=== PATIENT | female | born 1955 | race Caucasian/White ===

== ENCOUNTER 2025-07-06 08:26 | Inpatient (IN) ==
[2025-07-06] MEDS: OPTIRAY 320 125ml IV ONE (08:41)
--- NOTE | 2025-07-06 08:54 | CT Scan Report ---
CT SCAN OF THE BRAIN WITHOUT IV CONTRAST CLINICAL HISTORY: Neurological deficit. Stroke like symptoms COMPARISON STUDY: No prior TECHNIQUE: Unenhanced axial CT scan of the brain is performed from the vertex to the skull base. Imag es are reviewed in the axial, sagittal, coronal planes. A dose lowering technique was utilized adheri ng to the principles of ALARA. CT DOSE: 630.51 mGy.cm FINDINGS: Brain parenchyma: There is age-related involutional change noting moderate patchy subcortical and per iventricular microangiopathic disease. There is no hemorrhage, mass effect, or evidence of acute terr itorial ischemia by CT criteria. Bautista-white matter differentiation is preserved. No extra-axial fluid collection is seen. Ventricles, sulci, cisterns: Prominent secondary to involutional change. Intracranial vasculature: There is mild atherosclerotic calcification of the cavernous carotid arteri es. Calvarium: Unremarkable. Advanced arthritic change is seen in the left temporomandibular joint. Sinuses and mastoids: There is sora-cd-epaaythx mucosal thickening within the maxillary antra. Mild m ucosal thickening is noted within the frontal and ethmoid sinuses. There is a small left mastoid effu joyce. The right mastoid air cells are well pneumatized. Orbits: The bony orbits are grossly intact. IMPRESSION: There is no hemorrhage, mass effect, or evidence of acute territorial ischemia by CT rafael jha. ACT 112: Negative or not required by law. Electronically signed by: Jeff Palmer M.D. 07/06/2025 8:52 AM
[2025-07-06] MEDS: SODIUM CHLORIDE 0.9% 1,000 ML IV SCH (08:56)
--- NOTE | 2025-07-06 08:58 | CT Scan Report ---
CT ANGIOGRAPHY OF THE NECK WITH CONTRAST CLINICAL HISTORY: neuro deficit, acute stroke suspected COMPARISON STUDY: No previous studies for comparison. Technique: CT angiography of the carotid and vertebral arteries was obtained using Optiray and 3D rec onstruction on an independent workstation. NASCET criteria was utilized. Automated exposure control was utilized for the study. A dose lowering technique was utilized adhering to the principles of ALA RA. Findings: Visualized portions of the lung apices are unremarkable. There is no cervical lymphadenopat hy. There is no cervical spine fracture. There is mild calcified atherosclerotic plaque within the pr oximal left internal carotid artery without stenosis. The bilateral common carotid, cervical internal carotid and vertebral arteries are patent. There is no aneurysm or dissection within the major vascu lature of the neck. IMPRESSION: No stenosis or dissection within the bilateral common carotid, cervical internal carotid or vertebral arteries. ACT 112: Negative or not required by law. Electronically signed by: Ghanshyam Aburto M.D. 07/06/2025 8:57 AM
[2025-07-06 09:12] LABS: Hematocrit (blood only) 31.0 % (37.0-47.0); Hemoglobin 10.3 g/dl (12.0-16.0); Immature Granulocytes # (auto) 0.02 K/uL (0.01-0.20); Immature Granulocytes % (auto) 0.5 %; Mean Corpuscular Hemoglobin 30.5 pg (25.0-34.0); Mean Corpuscular Volume 91.7 fL (80.0-100.0); Platelet Count 190 K/uL (130-400); RDW Standard Deviation 46.3 fL (36.4-46.3); Red Blood Count 3.38 M/uL (4.20-5.40); White Blood Count 3.68 K/ul (4.8-10.8)
--- NOTE | 2025-07-06 09:22 | CT Scan Report ---
CT angio head w con CLINICAL HISTORY: 69 years-old Female with neuro deficit, acute stroke suspected. Acute stroke lik e symptoms COMPARISON STUDY: Head CT same day TECHNIQUE: Following the IV administration of 112 cc of Optiray, CT angiogram of the brain was perfor med from the skull base to the vertex. Images are reviewed in the axial, sagittal, and coronal planes . 3-D MIPS images are created and assessed. IV contrast was administered without complication. All me asurements were obtained according to NASCET criteria. A dose lowering technique was utilized adherin g to the principles of ALARA. CT DOSE: 457.52 mGy.cm FINDINGS: CT BRAIN: Dictated separately. CT ANGIOGRAM OF THE BRAIN: The imaged bilateral internal carotid arteries are patent. The bilateral anterior and middle cerebral arteries are also patent. The distal vertebral arteries are patent. There is a short segment of high -grade stenosis within the P1 segment right posterior cerebral artery on image 104 series 3. Posterio r cerebral arteries are otherwise widely patent. There is no aneurysm, or proximal branch occlusion i dentified. Dural sinuses appear patent. IMPRESSION: 1. Short segment focus of high-grade stenosis within the right posterior cerebral artery. 2. Otherwise unremarkable CTA of the head. ACT 112: Negative or not required by law. The above report was generated using voice recognition software. It may contain grammatical, syntax o r spelling errors. Electronically signed by: Dar Blackwell M.D. 07/06/2025 9:20 AM
[2025-07-06 09:29] LABS: Alanine Aminotransferase 11.0 U/L (7-52); Albumin Globulin Ratio 1.6 (0.9-2); Alkaline Phosphatase 64.0 U/L (34-104); Anion Gap 2.0 (3-11); Bilirubin,Total 0.5 mg/dl (0.2-1.0); Blood Urea Nitrogen 16.0 mg/dl (6-23); Calcium 8.6 mg/dl (8.6-10.3); Carbon Dioxide 30.0 mmol/L (21-32); Chloride 103.0 mmol/L (98-107); Creatinine Clr Calc Pharmacy 91.3 ml/min; Globulin 2.3 gm/dl (2.5-4.0); Glucose 129.0 mg/dl (70-99(Fasting)); Magnesium 1.8 mg/dl (1.7-2.4); Potassium 4.3 mmol/L (3.5-5.1); Sodium 135.0 mmol/L (136-145); Total Protein 6.0 gm/dl (6.0-8.3)
[2025-07-06] MEDS: TICAGRELOR 90 MG TAB PO ONE (09:29)
[2025-07-06] MEDS: ASPIRIN CHEW 324 MG PO STA (09:29)
--- NOTE | 2025-07-06 09:33 | XRay Report ---
XR chest 1V portable HISTORY: 69 years-old Female neuro deficit, acute stroke suspected COMPARISON: CTA neck of same day TECHNIQUE: AP view of the chest FINDINGS: Cardiomediastinal and hilar silhouettes are within normal limits. There is no pneumothorax, pleural e ffusion, airspace consolidation or pulmonary edema. Spondylitic spurring of the spine. IMPRESSION: No acute process. ACT 112: Negative or not required by law. The above report was generated using voice recognition software. It may contain grammatical, syntax o r spelling errors. Electronically signed by: Dar Blackwell M.D. 07/06/2025 9:32 AM
--- NOTE | 2025-07-06 09:41 | Emergency Department Note ---
Impression & Plan Stroke-like symptoms ED Provider Note NAME: ROSALIA MATA AGE: 69 SEX: Female INFORMANT: Patient and ED PROVIDER(S): Bhaskar Friedman MD CHIEF COMPLAINT: Strokelike symptoms PLAN: Disposition: Admitted Outpatient prescription management: none Referral: None MEDICAL DECISION MAKING: Patient presented because of strokelike symptoms. She was taken emergently to CT imaging and was made a stroke alert. Patient was evaluated immediately upon arrival back to the examination room. She had findings concerning for stroke given the left facial droop, visual field cuts and some diplopia expressed with extraocular muscle testing. Unfortunately patient has a last known well time almost 12 hours ago. Emergent consultation was placed with [facility]. Discussed the case with Dr. Zaragoza. She did evaluate the patient via the telestroke cart. CT imaging of the head was unremarkable. CT angiography of the neck was unremarkable. There was a area of stenosis in the right posterior cerebral artery. Dr. Zaragoza recommended loading the patient with Brilinta 180 mg and then having her on 90 mg twice daily. She also recommended 325 mg of aspirin. Thrombolysis was not recommended given the patient's last known well time. Consultation was made with Dr. De La O of the [facility] hospitalist service. Case discussed and diagnostics were reviewed. Patient was evaluated in the ER and admitted for further management. Care/management discussed with: manager print, telestroke, hospitalist Level of care consideration(s): After review of the information above and other included data, I feel the patient requires escalation of care to admission Triage Nursing notes: reviewed and agree them. Vital Signs: reviewed and remarkable for mild hypertension Additional History obtained from: Patient's Chronic Medical/Social Conditions affecting care: History of tachycardia Prior/ Outside/ External records reviewed: None available Differential Diagnosis: CVA, TIA,Infection, dehydration, metabolic abnormality, hypo/hyperglycemia, electrolyte disturbance, anemia, hypoxia, cardiac sources, intracerebral event, toxicologic, neurologic, as well as other pathologies. Diagnostics, independently interpreted by me: ECG: Twelve-lead ECG reveals a sinus bradycardia [address] and T wave abnormality. No ST elevation. No prior for comparison. Cardiac Monitoring: Cardiac monitoring ordered by me: The patient was placed on continuous cardiac monitoring and observed. It revealed a normal sinus rhythm at 61 beats per minute without ectopy or evidence of dysrhythmia. Medical decision rules: none Imaging studies: Head CT: A noncontrast CT scan of the head was performed and was negative for tumor, fracture, intracranial hemorrhage, or other acute pathology. Chest x-ray. Findings: A chest x-ray was performed and revealed no pneumothorax, effusion, infiltrate, pulmonary edema, free air under the diaphragm, or wide mediastinum. Impression: No acute disease. HPI: 69 year old Female arrives for evaluation of strokelike symptoms. This started today with waking at 7 AM. Patient notes peripheral vision loss on the left side. Yesterday the patient had about a 30-minute episode of difficulty with word finding and slurred speech. confirmed. also noted the patient had left facial droop this morning as well. That was new. No history of stroke or TIA. Patient is not on anticoagulation and does not take aspirin. Patient does have a history of SVT. She notes having an episode of tachycardia with a heart rate up to 144 2 days ago and she did take a dose of her as needed metoprolol. That lasted about 6 hours and then resolved. The patient also notes the following associated symptoms, none. The patient has taken no medication today for relieving factors. Current pain is rated as 0/10. Pt denies LOC, headache, fevers, chills, diaphoresis, neck pain, chest pain, breathing difficulties, nausea, vomiting, abdominal pain, back pain, melena, hematochezia, urinary symptoms, numbness, balance problems, extremity weakness, lymphadenopathy, rash, or other complaints.. PAST MEDICAL HISTORY: See Below, SVT PAST SURGICAL HISTORY: See Below, SOCIAL HISTORY: See Below, HOME MEDICATIONS: See Below ALLERGIES: See Below VITALS: See Below PHYSICAL EXAMINATION: GENERAL: Awake, alert, well-appearing, in no distress HENT: Normocephalic, atraumatic. Oropharynx unremarkable. EYES: Normal conjunctiva. Sclera non-icteric. PERRLA. EOMI. Left superior and inferior visual field cuts in both left and right eye with independent testing. Patient does experience some diplopia but no obvious visible findings on extraocular muscle testing. NECK: Inspection normal. Non-tender. Supple. No nuchal rigidity. FROM. No masses. RESPIRATORY: Clear to auscultation. No wheezes. No rales. Normal respiratory effort. CARDIAC: Normal rate. Normal rhythm. No murmurs. No rubs. Extremities warm and well perfused. Pulses equal. No JVD. GI: Soft, non-distended. No tenderness to palpation. No rebound or guarding. No masses. RECTAL: Deferred. MUSCULOSKELETAL: Atraumatic. Chest examination reveals no tenderness. The back is symmetrical on inspection without obvious abnormality. There is no CVA tenderness to palpation. No joint edema. LOWER EXTREMITIES: Calves are equal size bilaterally and non-tender. No edema. No discoloration. NEURO: Normal sensorium. Left facial droop present. Cranial nerves II through XII intact otherwise. Speech normal. No drift. Normal rapid alternating movements. Normal [id number]. SKIN: No rash or jaundice noted. 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 Beliefs That Will Affect Care: None Current Living Situation: Spouse Other Information That Helps Us Care for You: No Feels Safe at Home: Yes Safety Concerns: Feels Safe At This Time Assistive Devices: None Allergies Allergies Allergy/AdvReac Type Severity Reaction Status Date / Time LUDY Inhibitors Allergy listed as Unverified 07/06/25 09:38 allergy with pharmacy Iodinated Contrast Media Allergy listed as Unverified 07/06/25 09:38 allergy with pharmacy metronidazole Allergy listed as Unverified 07/06/25 09:38 allergy with pharmacy opium poppy Allergy See Unverified 07/06/25 09:38 comment box Thiazides Allergy listed as Unverified 07/06/25 09:38 allergy with pharmacy Home Meds Home Medications Medication Instructions Recorded Confirmed amlodipine 10 mg tablet 5 - 10 mg PO UD 07/06/25 07/06/25 diltiazem HCl 120 mg 120 mg PO DAILY 07/06/25 07/06/25 capsule,extended release 24 hr furosemide 20 mg tablet 20 mg PO DAILY 07/06/25 07/06/25 metoprolol succinate 25 mg 0 mg PO DAILY 07/06/25 07/06/25 tablet,extended release 24 hr pregabalin 75 mg capsule 75 mg PO BID 07/06/25 07/06/25 telmisartan 40 mg tablet 20 - 40 mg PO UD 07/06/25 07/06/25 zolpidem 5 mg tablet 5 mg PO HS PRN Sleep 07/06/25 07/06/25 Results & Data (ED) Vital Signs Vital Signs - 24 hr 07/06/25 08:30 07/06/25 08:52 07/06/25 08:54 Temperature 36.5 C Temperature Source Temporal Artery Scan Pulse Rate 58 L 61 Pulse Rate [Apical] Pulse Rate from SpO2 Sensor Respiratory Rate 18 Respiratory Effort / Characteristics Non-Labored Spontaneous Respiratory Depth Normal Respiratory Pattern Regular Blood Pressure 188/100 H 180/96 H Blood Pressure [Right Arm] Blood Pressure Mean 129 118 Blood Pressure Mean [Right Arm] Pulse Oximetry 99 Oxygen Delivery Method Room Air Oxygen Flow Rate Sepsis Recent Fever Within 48 Hours No Sepsis New/Unexplained Change in Mental Status N/A Sepsis Action Taken by Nursing No Action Required 07/06/25 09:00 07/06/25 09:30 07/06/25 10:06 Temperature Temperature Source Pulse Rate 54 L 61 51 L Pulse Rate [Apical] Pulse Rate from SpO2 Sensor 55 L 61 51 L Respiratory Rate 17 14 16 Respiratory Effort / Characteristics Respiratory Depth Respiratory Pattern Blood Pressure 185/88 H 170/83 H 157/80 H Blood Pressure [Right Arm] Blood Pressure Mean 120 112 105 Blood Pressure Mean [Right Arm] Pulse Oximetry 96 97 97 Oxygen Delivery Method Room Air Room Air Room Air Oxygen Flow Rate Sepsis Recent Fever Within 48 Hours Sepsis New/Unexplained Change in Mental Status Sepsis Action Taken by Nursing 07/06/25 11:12 Temperature Temperature Source Pulse Rate Pulse Rate [Apical] 54 L Pulse Rate from SpO2 Sensor Respiratory Rate 19 Respiratory Effort / Characteristics Non-Labored Spontaneous Respiratory Depth Normal Respiratory Pattern Regular Blood Pressure Blood Pressure [Right Arm] 164/85 H Blood Pressure Mean Blood Pressure Mean [Right Arm] 111 Pulse Oximetry 99 Oxygen Delivery Method Nasal Cannula Oxygen Flow Rate 2 Sepsis Recent Fever Within 48 Hours Sepsis New/Unexplained Change in Mental Status Sepsis Action Taken by Nursing Laboratory Data 07/06/25 08:35 07/06/25 08:35 Lab Results 07/06/25 Range/Units 08:35 WBC 3.68 L (4.8-10.8) K/ul RBC 3.38 L (4.20-5.40) M/uL Hgb 10.3 L (12.0-16.0) g/dl Hct 31.0 L (37.0-47.0) % MCV 91.7 (80.0-100.0) fL MCH 30.5 (25.0-34.0) pg MCHC 33.2 (32.0-36.0) g/dL RDW Std Deviation 46.3 (36.4-46.3) fL RDW Coeff of Farhad 13.8 (11.5-14.5) % Plt Count 190 (130-400) K/uL MPV 9.8 (9.4-12.4) fL Immature Gran % (Auto) 0.5 % Neut % (Auto) 45.1 % Lymph % (Auto) 43.8 % [place] % (Auto) 8.7 % Eos % (Auto) 1.4 % Baso % (Auto) 0.5 % Neut # (Auto) 1.66 (1.40-6.50) K/uL Lymph # (Auto) 1.61 (1.20-3.40) K/uL [place] # (Auto) 0.32 (0.11-0.59) K/uL Eos # (Auto) 0.05 (0.00-0.50) K/uL Baso # (Auto) 0.02 (0.00-0.20) K/uL Immature Gran # (Auto) 0.02 (0.01-0.20) K/uL PT 11.4 (9.0-12.0) Seconds INR 1.1 (0.9-1.1) APTT 30 (21-31) Seconds PTT Ratio 1.1 Sodium 135 L (136-145) mmol/L Potassium 4.3 (3.5-5.1) mmol/L Chloride 103 (98-107) mmol/L Carbon Dioxide 30 (21-32) mmol/L Anion Gap 2 L (3-11) BUN 16 (6-23) mg/dl Creatinine 0.62 (0.6-1.2) mg/dl Est Cr Clr Drug Dosing 91.3 ml/min eGFR 95.74 BUN/Creatinine Ratio 25.8 H (10-20) Glucose 129 H (70-99(Fasting)) mg/dl Calcium 8.6 (8.6-10.3) mg/dl Magnesium 1.8 (1.7-2.4) mg/dl Total Bilirubin 0.5 (0.2-1.0) mg/dl AST 15 (13-39) U/L ALT 11 (7-52) U/L Alkaline Phosphatase 64 (34-104) U/L Troponin I High Sens 9.6 (0-14) pg/ml Total Protein 6.0 (6.0-8.3) gm/dl Albumin 3.7 (3.4-5.0) gm/dl Globulin 2.3 L (2.5-4.0) gm/dl Albumin/Globulin Ratio 1.6 (0.9-2) Blood Type O Positive Antibody Screen NEGATIVE Administered Medications Sodium Chloride (Nss) 1,000 mls @ 50 mls/hr IV .Q20H [facility] Stop: 07/09/25 08:44 Last Admin: 07/06/25 08:56 Dose: 50 mls/hr Documented By: [facility] Discontinued Medications Aspirin (Aspirin Chew 324 Mg) 324 mg PO NOW STA Stop: 07/06/25 09:24 Last Admin: 07/06/25 09:29 Dose: 324 mg Documented By: [facility] Ioversol (Optiray 320 125ml) 112 ml IV ONCE ONE Stop: 07/06/25 08:42 Last Admin: 07/06/25 08:41 Dose: 112 ml Documented By: KRISTOFER Ticagrelor (Ticagrelor 90 Mg Tab) 180 mg PO ONE ONE Stop: 07/06/25 09:24 Last Admin: 07/06/25 09:29 Dose: 180 mg Documented By: [facility] Imaging Data Radiologist's Impression: Head CT 07/06/25 08:33 CT SCAN OF THE BRAIN WITHOUT IV CONTRAST CLINICAL HISTORY: Neurological deficit. Stroke like symptoms COMPARISON STUDY: No prior TECHNIQUE: Unenhanced axial CT scan of the brain is performed from the vertex to the skull base. Images are reviewed in the axial, sagittal, coronal planes. A dose lowering technique was utilized adhering to the principles of ALARA. CT DOSE: 630.51 mGy.cm FINDINGS: Brain parenchyma: There is age-related involutional change noting moderate patchy subcortical and periventricular microangiopathic disease. There is no hemorrhage, mass effect, or evidence of acute territorial ischemia by CT criteria. Bautista-white matter differentiation is preserved. No extra-axial fluid collection is seen. Ventricles, sulci, cisterns: Prominent secondary to involutional change. Intracranial vasculature: There is mild atherosclerotic calcification of the cavernous carotid arteries. Calvarium: Unremarkable. Advanced arthritic change is seen in the left temporomandibular joint. Sinuses and mastoids: There is [id number] mucosal thickening within the maxillary antra. Mild mucosal thickening is noted within the frontal and ethmoid sinuses. There is a small left mastoid effusion. The right mastoid air cells are well pneumatized. Orbits: The bony orbits are grossly intact. IMPRESSION: There is no hemorrhage, mass effect, or evidence of acute territorial ischemia by CT criteria. ACT 112: Negative or not required by law. Electronically signed by: Jeff Palmer M.D. 07/06/2025 8:52 AM Chest X-Ray 07/06/25 08:35 XR chest 1V portable HISTORY: 69 years-old Female neuro deficit, acute stroke suspected COMPARISON: CTA neck of same day TECHNIQUE: AP view of the chest FINDINGS: Cardiomediastinal and hilar silhouettes are within normal limits. There is no pneumothorax, pleural effusion, airspace consolidation or pulmonary edema. Spondylitic spurring of the spine. IMPRESSION: No acute process. ACT 112: Negative or not required by law. The above report was generated using voice recognition software. It may contain grammatical, syntax or spelling errors. Electronically signed by: Dar Blackwell M.D. 07/06/2025 9:32 AM Head CTA 07/06/25 08:35 CT angio head w con CLINICAL HISTORY: 69 years-old Female with neuro deficit, acute stroke suspected. Acute stroke like symptoms COMPARISON STUDY: Head CT same day TECHNIQUE: Following the IV administration of 112 cc of Optiray, CT angiogram of the brain was performed from the skull base to the vertex. Images are reviewed in the axial, sagittal, and coronal planes. 3-D MIPS images are created and assessed. IV contrast was administered without complication. All measurements were obtained according to NASCET criteria. A dose lowering technique was utilized adhering to the principles of ALARA. CT DOSE: 457.52 mGy.cm FINDINGS: CT BRAIN: Dictated separately. CT ANGIOGRAM OF THE BRAIN: The imaged bilateral internal carotid arteries are patent. The bilateral anterior and middle cerebral arteries are also patent. The distal vertebral arteries are patent. There is a short segment of high-grade stenosis within the P1 segment right posterior cerebral artery on image 104 series 3. Posterior cerebral arteries are otherwise widely patent. There is no aneurysm, or proximal branch occlusion identified. Dural sinuses appear patent. IMPRESSION: 1. Short segment focus of high-grade stenosis within the right posterior cerebral artery. 2. Otherwise unremarkable CTA of the head. ACT 112: Negative or not required by law. The above report was generated using voice recognition software. It may contain grammatical, syntax or spelling errors. Electronically signed by: Dar Blackwell M.D. 07/06/2025 9:20 AM Neck CTA 07/06/25 08:35 CT ANGIOGRAPHY OF THE NECK WITH CONTRAST CLINICAL HISTORY: neuro deficit, acute stroke suspected COMPARISON STUDY: No previous studies for comparison. Technique: CT angiography of the carotid and vertebral arteries was obtained using Optiray and 3D reconstruction on an independent workstation. NASCET criteria was utilized. Automated exposure control was utilized for the study. A dose lowering technique was utilized adhering to the principles of ALARA. Findings: Visualized portions of the lung apices are unremarkable. There is no cervical lymphadenopathy. There is no cervical spine fracture. There is mild calcified atherosclerotic plaque within the proximal left internal carotid artery without stenosis. The bilateral common carotid, cervical internal carotid and vertebral arteries are patent. There is no aneurysm or dissection within the major vasculature of the neck. IMPRESSION: No stenosis or dissection within the bilateral common carotid, cervical internal carotid or vertebral arteries. ACT 112: Negative or not required by law. Electronically signed by: Ghanshyam Aburto M.D. 07/06/2025 8:57 AM Brain MRI 07/06/25 10:56 MRI OF THE BRAIN WITHOUT IV CONTRAST CLINICAL HISTORY: Strokelike symptoms. Left-sided visual changes. COMPARISON STUDY: CT of the brain dated 07/06/2025. TECHNIQUE: MRI of the brain was performed utilizing various T1 and T2-weighted sequences in the axial, sagittal, and coronal planes. IV contrast was not administered for this examination. FINDINGS: Brain parenchyma: There is age-related involutional change noting moderate subcortical and periventricular microangiopathic disease. There is a large focus of restricted diffusion in the right occipital lobe consistent with an acute to subacute infarct. There is an additional small focus of restricted diffusion in the left parietal cortex seen on image #20. There is no hemorrhage or midline shift. No extra-axial fluid collection is seen. The cerebellar tonsils are normal in configuration. Ventricles, sulci, and cisterns: Prominent secondary to involutional change. Pituitary and sella: Unremarkable. Intracranial vasculature: Normal flow voids are maintained at the skull base. Orbits: The bony orbits are grossly intact. Orbital contents are normal in appearance. Sinuses and mastoids: There is [id number]-[id number] mucosal thickening within the maxillary sinuses. Mild mucosal thickening is also seen within the ethmoid sinuses. There is trace left mastoid effusion. The right mastoid air cells are clear. Calvarium: Unremarkable. Cervical cord: Partially visualized cervical spinal cord is normal in morphology and signal intensity. IMPRESSION: 1. There is a large acute subacute right WINDOWS SOFTWARE DEVELOPER territory infarct. 2. There is also a small focus of acute to subacute ischemia within the left parietal cortex. Findings across different vascular territories favor an embolic phenomenon. 3. There is no hemorrhage or mass effect. ACT 112: Negative or not required by law. Electronically signed by: Jeff Palmer M.D. 07/06/2025 1:23 PM Discharge Plan Visit Data Chief Complaint: Stroke/CVA Symptoms Stated Complaint: POSSIBLE STROKE, LOSS OF VISION, SPEECH SLURRING ED Provider: Bhaskar Friedman Discharge Problem: Stroke-like symptoms Patient Disposition: Admitted As Inpatient Condition: Fair Discharge Instructions Interventions: ED Discharge Assessment Last Done: 07/06/25 15:35
[2025-07-06 09:44] LABS: INR 1.1 (0.9-1.1); Partial Thromboplastin Time 30 Seconds (21-31); Prothrombin Time 11.4 Seconds (9.0-12.0)
--- NOTE | 2025-07-06 10:33 | History & Physical Report ---
Date of Service July 06, 2025 Assessment & Plan (1) Acute stroke due to occlusion of right posterior cerebral artery: (2) Essential hypertension: (3) SVT (supraventricular tachycardia): (4) COVID-19: (5) Visual field defect: Plan 69yo female with history of HTN, SVT, left-sided renal artery stenosis, right- sided renal artery fibromuscular dysplasia, and recent COVID-19 infection presented to the hospital today with complaints of visual disturbance and question of very mild left facial droop. She & her traveled yesterday from [facility] to the [facility] to attend a family reunion. En route from [place] she had about a 30-minute episode of dysarthric speech. This self-resolved. She did not have any other neurological symptoms with the dysarthria. They arrived in [place] last pm and stayed in a hotel. Upon awakening this morning at 7am she immediately noted that she couldn't see normally. In particular, she noted that the left side of her visual field was "off." Her had also noted a very slight left lower facial droop. Patient is right-handed. #acute stroke - likely right OFFICE AUDITOR territory stroke with resulting left-sided visual field deficit - -CTA head with high-grade stenosis of the right OFFICE AUDITOR -this is likely c/w with her ocular findings on examination / right-sided OFFICE AUDITOR territory CVA -MRI Brain to confirm stroke is pending -will complete the work-up with echo w/ bubble study -telemetry -aspirin/Brilinta load occurred in ER per recs from [facility] -then continue aspirin 81mg daily starting tomorrow along with Brilinta (or Plavix) -PT/OT/speech evals -consulted Dr Walter Garcia from [facility] Neurology -check lipids and hemoglobin a1c in am; start lipitor 40mg daily now -I am very suspicious she had atrial fibrillation on Wednesday of this week given the description of her HRs, the irregularity of the rhythm, etc. -the timing of her arrhythmia on Wednesday fits with her subsequent neurological events -if she indeed had atrial fibrillation her stroke event could be embolic in etiology -other possibility of etiology would be that of embolic stroke in the setting of PFO, a LE DVT with PFO, etc. -in light of extensive plane & car travel in the last few weeks check dopplers of both legs - r/o DVT -her recent COVID-19 infection also increased her risk of stroke due to his pro- inflammatory effects on the vascular system #30-minute episode of dysarthria on 07/05 - -TIA vs subacute CVA; self-resolved -await brain MRI -see stroke w/u above -no further speech impairment since 07/05 #HTN - -in light of suspected stroke allow permissive HTN for about 24 hours -thus, hold amlodipine, diltiazem, furosemide, metoprolol, and telmisartan -start BP treatment on 07/07 with gradual reduction #h/o SVT - -required hospitalization for such in [place] several years ago -ablation had been discussed in the past but not pursued -has worn outpatient monitors and she was never told a.fib or a.flutter was seen -see discussion above re: possible a.fib on 07/04 -telemetry while here #recent COVID-19 infection - -mild leukopenia likely due to such -had URI symptoms only -tested positive on home test ~06/23 -symptoms started about 06/21 while traveling in [place] -we are 14+ days out from the start of symptoms; thus, no isolation required at this time -no evidence of lower respiratory tract infection from the recent COVID -certainly COVID can increase the risk of stroke based on the experiences/observations of the COVID pandemic #FEN - -dysphagia screen - if she passes start a diet -NS at 50ml/hour -repeat BMP am tomorrow #DVT proph - -await dopplers of legs; if negative then start lovenox 40mg daily for prophylaxis updated at bedside during the admission process History of Present Illness Chief Complaint: visual field deficit, ? left facial droop, episode of dysarthria yesterday Primary Care Provider: NO PCP Very pleasant 69yo female with history of HTN, SVT, left-sided renal artery stenosis, right-sided renal artery fibromuscular dysplasia, and recent COVID-19 infection presented to the hospital today with complaints of visual disturbance and very mild left facial droop. She & her traveled yesterday from [facility] to the [facility] to attend a family reunion. En route from [place] she had about a 30-minute episode of dysarthric speech. This self-resolved. She did not have any other neurological symptoms with the dysarthria. They arrived in [place] last pm and stayed in a hotel. Upon awakening this morning at 7am she immediately noted that she couldn't see normally. In particular, she noted that the left side of her visual field was "off." Her had also noted a very slight left lower facial droop. The symptoms persisted and thus she came to [facility] ER for evaluation. In addition, on Wednesday while still in [place], she had about a 6 hour episode of tachycardia with rates of 140s to 160s. She assumed it was her SVT and took metoprolol for such. Her rates improved later in the day to <100 but she noticed for at least another 2-3 hours her rhythm was irregular. Ultimately the irregularity stopped completely on Wednesday night. To her knowledge she has never been told she has had a.fib or a.flutter. She follows with cardiology in [place], [place]. Finally, she & her traveled to [facility] about 2-3 weeks ago. About 06/20 or 06/21 she developed URI symptoms and felt poorly. They traveled back to [place] by way of airplane on 06/22. On 06/23 she took a home COVID test and this was positive. Her URI symptoms are fully resolved at this time. During my admission assessment, however, she was wearing oxygen and reported that since arrival to [facility] she feels a little short of breath. She also had dyspnea during her palpitations episode on Wednesday. Allergies Allergy/AdvReac Type Severity Reaction Status Date / Time LUDY Inhibitors Allergy listed as Unverified 07/06/25 09:38 allergy with pharmacy Iodinated Contrast Media Allergy listed as Unverified 07/06/25 09:38 allergy with pharmacy metronidazole Allergy listed as Unverified 07/06/25 09:38 allergy with pharmacy opium poppy Allergy See Unverified 07/06/25 09:38 comment box Thiazides Allergy listed as Unverified 07/06/25 09:38 allergy with pharmacy Home Medications Medication Instructions Recorded Confirmed Type amlodipine 10 mg tablet 5 - 10 mg PO UD 07/06/25 07/06/25 History diltiazem HCl 120 mg 120 mg PO DAILY 07/06/25 07/06/25 History capsule,extended release 24 hr furosemide 20 mg tablet 20 mg PO DAILY 07/06/25 07/06/25 History metoprolol succinate 25 mg 0 mg PO DAILY 07/06/25 07/06/25 History tablet,extended release 24 hr pregabalin 75 mg capsule 75 mg PO BID 07/06/25 07/06/25 History telmisartan 40 mg tablet 20 - 40 mg PO UD 07/06/25 07/06/25 History zolpidem 5 mg tablet 5 mg PO HS PRN Sleep 07/06/25 07/06/25 History Past Med/Surg History Problem List (Updated 07/07/25 @ 03:41 by Mauro De La O MD) Visual field defect Acute stroke due to occlusion of right posterior cerebral artery COVID-19 Stroke-like symptoms (Acute) Medical History (Updated 07/07/25 @ 03:41 by Mauro De La O MD) Essential hypertension SVT (supraventricular tachycardia) Left renal artery stenosis Fibromuscular dysplasia of right renal artery Tibial plateau fracture, left s/p ORIF - 01/2023; removal of plate - 01/2024 Aftercare involving removal of fracture plate or internal fixation device left wrist plate removal - 02/2021 Sampson's fracture of right radius s/p repair - 2019 Surgical History (Updated 07/07/25 @ 03:41 by Mauro De La O MD) History of total left knee replacement (TKR) 05/2024 H/O wrist surgery left distal radius/ulna fractures s/p ORIF - 2019 H/O ventral hernia repair laparoscopic - 05/2020 History of facial surgery TMJ arthroscopy - left - 1987 History of tonsillectomy and adenoidectomy Family History (Updated 07/07/25 @ 03:43 by Mauro De La O MD) Father , age 90 COPD (chronic obstructive pulmonary disease) Dementia Mother , age 90 Sepsis Denies family history of Stroke Social History (Updated 07/07/25 @ 03:44 by Mauro De La O MD) Smoking Status: Never smoker Do You Dip or Chew Tobacco: No; Hx Alcohol Use: No Hx Substance Use: No Preferred Language: Urdu Communication Ability: Effective Florist Manager Required: No Beliefs That Will Affect Care: None marital status: Current Living Situation: Spouse Current Living Situation Comment: live in [place], [place] current occupational status: retired How many Children do You have: 3 How many Children do You have Comment: 1 daughter is ER physician in [facility]; another child is physician captain assistant in [place] Feels Safe at Home: Yes Assistive Devices: None Review of Systems Review of Systems: gen - no fevers or chills; normal appetite eyes - left sided visual field defect starting this am upon awakening; no blurry vision HENT - no dysphagia; recent URI symptoms 2nd COVID - resolved CV - no chest pain; palpitations x 6-8 hours Wednesday of this week pulm - mild dyspnea when she had palpitations on Wednesday; no dyspnea or cough during recent COVID illness GI - no nausea/emesis/pain/blood in stool - feeling of bladder fullness (only in the ER, none prior) musculo - chronic left knee discomfort neuro - 30 min episode of dysarthria yesterday - self- resolved; left visual field cut starting this am; no motor/sensory impairment of legs/arms; no vertigo skin - no rash endo - no diabetes Physical Exam Physical Exam: gen - very pleasant, NAD, speech clear/fluent, awake/alert face - ?slight droop of left corner of mouth only; otherwise symmetric facial muscles b/l eyes - PERRL, EOMI, no nystagmus; left-sided homonymous hemianopsia with direct confrontation/visual field testing HENT - MMM, no lesions neck - no JVD, no goiter, no lymph nodes heart - irregular (PACs), rate <100, s1 s2, no murmur lungs - CTA b/l, no rales abd - soft NT ND BS+ ext - no edema, pulses b/l feet 2+ neuro - strength 5/5 x 4 exts; no pronator drift; CN 3-12 intact except for the left sided visual field cut and ?slight lower facial droop on left; sensory intact to light touch x 4 exts; finger/nose/finger maneuver w/o ataxia; DTRs 2+ b/l upper and lower exts skin - no rash psych - tearful at times, but awake, alert, oriented x 3 Results & Data Results & Data Vital Signs (Past 12 Hours) Vital Signs Temp Pulse Resp BP Pulse Ox O2 Del Method 07/06/25 10:06 51 L 16 157/80 H 97 Room Air 07/06/25 09:30 61 14 170/83 H 97 Room Air 07/06/25 09:00 54 L 17 185/88 H 96 Room Air 07/06/25 08:54 61 07/06/25 08:52 180/96 H 07/06/25 08:30 36.5 C 58 L 18 188/100 H 99 Room Air Laboratory Results Laboratory Results - last 24 hr 07/06/25 07/06/25 08:35 Unknown WBC 3.68 L RBC 3.38 L Hgb 10.3 L Hct 31.0 L MCV 91.7 MCH 30.5 MCHC 33.2 RDW Std Deviation 46.3 RDW Coeff of Farhad 13.8 Plt Count 190 MPV 9.8 Immature Gran % (Auto) 0.5 Neut % (Auto) 45.1 Lymph % (Auto) 43.8 [place] % (Auto) 8.7 Eos % (Auto) 1.4 Baso % (Auto) 0.5 Neut # (Auto) 1.66 Lymph # (Auto) 1.61 [place] # (Auto) 0.32 Eos # (Auto) 0.05 Baso # (Auto) 0.02 Immature Gran # (Auto) 0.02 PT 11.4 INR 1.1 APTT 30 PTT Ratio 1.1 Sodium 135 L Potassium 4.3 Chloride 103 Carbon Dioxide 30 Anion Gap 2 L BUN 16 Creatinine 0.62 Est Cr Clr Drug Dosing 91.3 eGFR 95.74 BUN/Creatinine Ratio 25.8 H Glucose 129 H Calcium 8.6 Magnesium 1.8 Total Bilirubin 0.5 AST 15 ALT 11 Alkaline Phosphatase 64 Troponin I High Sens 9.6 Total Protein 6.0 Albumin 3.7 Globulin 2.3 L Albumin/Globulin Ratio 1.6 Urine Color Yellow Urine Appearance Clear Urine pH 7.0 Ur Specific [place] 1.023 Urine Protein Negative Urine Glucose (UA) Negative Urine Ketones Negative Urine Blood Negative Urine Nitrite Negative Urine Bilirubin Negative Urine Urobilinogen Negative Ur Leukocyte Esterase 3+ H Urine WBC (Auto) 11-20 H Urine RBC (Auto) 0-2 U Hyaline Cast (Auto) 0-2 U Epithel Cells (Auto) 3-5 H Urine Bacteria (Auto) None Seen Urine Comment Blood Type O Positive Antibody Screen NEGATIVE Diagnostic Findings Head CT 07/06/25 08:33 CT SCAN OF THE BRAIN WITHOUT IV CONTRAST CLINICAL HISTORY: Neurological deficit. Stroke like symptoms COMPARISON STUDY: No prior TECHNIQUE: Unenhanced axial CT scan of the brain is performed from the vertex to the skull base. Images are reviewed in the axial, sagittal, coronal planes. A dose lowering technique was utilized adhering to the principles of ALARA. CT DOSE: 630.51 mGy.cm FINDINGS: Brain parenchyma: There is age-related involutional change noting moderate patchy subcortical and periventricular microangiopathic disease. There is no hemorrhage, mass effect, or evidence of acute territorial ischemia by CT criteria. Bautista-white matter differentiation is preserved. No extra-axial fluid collection is seen. Ventricles, sulci, cisterns: Prominent secondary to involutional change. Intracranial vasculature: There is mild atherosclerotic calcification of the cavernous carotid arteries. Calvarium: Unremarkable. Advanced arthritic change is seen in the left temporomandibular joint. Sinuses and mastoids: There is [id number] mucosal thickening within the maxillary antra. Mild mucosal thickening is noted within the frontal and ethmoid sinuses. There is a small left mastoid effusion. The right mastoid air cells are well pneumatized. Orbits: The bony orbits are grossly intact. IMPRESSION: There is no hemorrhage, mass effect, or evidence of acute territorial ischemia by CT criteria. ACT 112: Negative or not required by law. Electronically signed by: Jeff Palmer M.D. 07/06/2025 8:52 AM Chest X-Ray 07/06/25 08:35 XR chest 1V portable HISTORY: 69 years-old Female neuro deficit, acute stroke suspected COMPARISON: CTA neck of same day TECHNIQUE: AP view of the chest FINDINGS: Cardiomediastinal and hilar silhouettes are within normal limits. There is no pneumothorax, pleural effusion, airspace consolidation or pulmonary edema. Spondylitic spurring of the spine. IMPRESSION: No acute process. ACT 112: Negative or not required by law. The above report was generated using voice recognition software. It may contain grammatical, syntax or spelling errors. Electronically signed by: Dar Blackwell M.D. 07/06/2025 9:32 AM Head CTA 07/06/25 08:35 CT angio head w con CLINICAL HISTORY: 69 years-old Female with neuro deficit, acute stroke suspected. Acute stroke like symptoms COMPARISON STUDY: Head CT same day TECHNIQUE: Following the IV administration of 112 cc of Optiray, CT angiogram of the brain was performed from the skull base to the vertex. Images are reviewed in the axial, sagittal, and coronal planes. 3-D MIPS images are created and assessed. IV contrast was administered without complication. All measurements were obtained according to NASCET criteria. A dose lowering technique was utilized adhering to the principles of ALARA. CT DOSE: 457.52 mGy.cm FINDINGS: CT BRAIN: Dictated separately. CT ANGIOGRAM OF THE BRAIN: The imaged bilateral internal carotid arteries are patent. The bilateral anterior and middle cerebral arteries are also patent. The distal vertebral arteries are patent. There is a short segment of high-grade stenosis within the P1 segment right posterior cerebral artery on image 104 series 3. Posterior cerebral arteries are otherwise widely patent. There is no aneurysm, or proximal branch occlusion identified. Dural sinuses appear patent. IMPRESSION: 1. Short segment focus of high-grade stenosis within the right posterior cerebral artery. 2. Otherwise unremarkable CTA of the head. ACT 112: Negative or not required by law. The above report was generated using voice recognition software. It may contain grammatical, syntax or spelling errors. Electronically signed by: Dar Blackwell M.D. 07/06/2025 9:20 AM Neck CTA 07/06/25 08:35 CT ANGIOGRAPHY OF THE NECK WITH CONTRAST CLINICAL HISTORY: neuro deficit, acute stroke suspected COMPARISON STUDY: No previous studies for comparison. Technique: CT angiography of the carotid and vertebral arteries was obtained using Optiray and 3D reconstruction on an independent workstation. NASCET criteria was utilized. Automated exposure control was utilized for the study. A dose lowering technique was utilized adhering to the principles of ALARA. Findings: Visualized portions of the lung apices are unremarkable. There is no cervical lymphadenopathy. There is no cervical spine fracture. There is mild calcified atherosclerotic plaque within the proximal left internal carotid artery without stenosis. The bilateral common carotid, cervical internal carotid and vertebral arteries are patent. There is no aneurysm or dissection within the major vasculature of the neck. IMPRESSION: No stenosis or dissection within the bilateral common carotid, cervical internal carotid or vertebral arteries. ACT 112: Negative or not required by law. Electronically signed by: Ghanshyam Aburto M.D. 07/06/2025 8:57 AM ECG Additional Comments: EKG - my reading - sinus bradycardia, no ST changes PG Care Time/CCT Total # of Minutes Spent Total Time Spent with Patient: Total time spent is greater than 50% in coordination of care (as documented) at patient's floor/unit and/or counseling patient: Coding Level of Care Code 76319 INT INP/OBS CARE MIN Diagnoses Acute stroke due to occlusion of right posterior cerebral artery I63.531 Essential hypertension I10 SVT (supraventricular tachycardia) I47.10 COVID-19 U07.1 Visual field defect H53.40
[2025-07-06 11:18] LABS: Appearance Urine Clear (Clear); Bacteria Urine Automated None Seen (None Seen); Cast Urine Automated 0-2 /lpf (0-2); Glucose Urine UA Negative (Negative); RBC Urine Automated 0-2 /hpf (0-2)
--- NOTE | 2025-07-06 13:24 | Magnetic Resonance Report ---
MRI OF THE BRAIN WITHOUT IV CONTRAST CLINICAL HISTORY: Strokelike symptoms. Left-sided visual changes. COMPARISON STUDY: CT of the brain dated 07/06/2025. TECHNIQUE: MRI of the brain was performed utilizing various T1 and T2-weighted sequences in the axial , sagittal, and coronal planes. IV contrast was not administered for this examination. FINDINGS: Brain parenchyma: There is age-related involutional change noting moderate subcortical and periventri cular microangiopathic disease. There is a large focus of restricted diffusion in the right occipital lobe consistent with an acute to subacute infarct. There is an additional small focus of restricted diffusion in the left parietal cortex seen on image #20. There is no hemorrhage or midline shift. No extra-axial fluid collection is seen. The cerebellar tonsils are normal in configuration. Ventricles, sulci, and cisterns: Prominent secondary to involutional change. Pituitary and sella: Unremarkable. Intracranial vasculature: Normal flow voids are maintained at the skull base. Orbits: The bony orbits are grossly intact. Orbital contents are normal in appearance. Sinuses and mastoids: There is [id number] mucosal thickening within the maxillary sinuses. Mild mucosal thickening is also seen within the ethmoid sinuses. There is trace left mastoid effusion. Th e right mastoid air cells are clear. Calvarium: Unremarkable. Cervical cord: Partially visualized cervical spinal cord is normal in morphology and signal intensity . IMPRESSION: 1. There is a large acute subacute right CLEAT BLANKER territory infarct. 2. There is also a small focus of acute to subacute ischemia within the left parietal cortex. Finding s across different vascular territories favor an embolic phenomenon. 3. There is no hemorrhage or mass effect. ACT 112: Negative or not required by law. Electronically signed by: Jeff Palmer M.D. 07/06/2025 1:23 PM
[2025-07-06] MEDS ORDERED: ONDANSETRON INJ 2 MG/ML 2 ML VIAL IV PRN (17:17)
[2025-07-06] MEDS ORDERED: MELATONIN 3 MG TAB PO PRN (17:17)
[2025-07-06] MEDS ORDERED: PHARMACIST DISCHARGE MED REC CONSULT PRN (17:17)
[2025-07-06] MEDS: PREGABALIN 75 MG CAP PO SCH (20:32)
--- NOTE | 2025-07-06 22:21 | Electrocardiogram Report ---
Test Reason : Blood Pressure : */* mmHG Vent. Rate : 57 BPM Atrial Rate : 57 BPM P-R Int : 172 ms QRS Dur : 102 ms QT Int : 442 ms P-R-T Axes : 63 47 56 degrees QTcB Int : 430 ms Sinus bradycardia Nonspecific ST and T wave abnormality Abnormal ECG No previous ECGs available Confirmed by Lamonte Curiel ([id number]) on 07/06/2025 10:21:23 PM Referred By: REFERRED SELF Confirmed By: Lamonte Curiel
--- NOTE | 2025-07-06 23:34 | Ultrasound Report ---
Exam(s): US VENOUS BILATERAL LOWER EXTREMITIES EXAM: US Duplex Bilateral Lower Extremities Veins CLINICAL HISTORY: Reason for exam: recent prolonged travel recent COVID; ?DVT. TECHNIQUE: Real-time duplex ultrasound scan of the bilateral lower extremity veins integrating B-mode two-dimensional vascular structure, Doppler spectral analysis, color flow Doppler imaging and compression. COMPARISON: No relevant prior studies available. FINDINGS: Right deep veins: No DVT in the right common femoral, femoral, proximal deep femoral or popliteal veins. The veins demonstrate normal color flow, are normally compressible, with normal phasic flow and/or augmentation response. Right superficial veins: No thrombus in the visualized right great saphenous vein. Left deep veins: No DVT in the left common femoral, femoral, proximal deep femoral or popliteal veins. The veins demonstrate normal color flow, are normally compressible, with normal phasic flow and/or augmentation response. Left superficial veins: No thrombus in the visualized left great saphenous vein. Soft tissues: No acute findings. No popliteal cyst. IMPRESSION: No ultrasound evidence of deep venous thrombosis in the lower extremities. . Electronically signed by: Karl Marshall MD 07/06/25 23:33 PM
[2025-07-07 07:11] LABS: Hematocrit (blood only) 35.4 % (37.0-47.0); Hemoglobin 11.6 g/dl (12.0-16.0); Hemoglobin A1C 5.5 % (4.5-5.6); Immature Granulocytes # (auto) 0.01 K/uL (0.01-0.20); Immature Granulocytes % (auto) 0.2 %; Mean Corpuscular Hemoglobin 30.0 pg (25.0-34.0); Mean Corpuscular Volume 91.5 fL (80.0-100.0); Platelet Count 214 K/uL (130-400); RDW Standard Deviation 46.7 fL (36.4-46.3); Red Blood Count 3.87 M/uL (4.20-5.40); White Blood Count 5.00 K/ul (4.8-10.8)
[2025-07-07 07:31] LABS: Anion Gap 6.0 (3-11); Blood Urea Nitrogen 9.0 mg/dl (6-23); Calcium 9.3 mg/dl (8.6-10.3); Carbon Dioxide 28.0 mmol/L (21-32); Chloride 104.0 mmol/L (98-107); Cholesterol 184.0 mg/dl (0-200); Creatinine Clr Calc Pharmacy 89.9 ml/min; Glucose 126.0 mg/dl (70-99(Fasting)); HDL Cholesterol 73.0 mg/dl; Potassium 4.3 mmol/L (3.5-5.1); Sodium 138.0 mmol/L (136-145); Triglycerides 124.0 mg/dl (0-150)
--- NOTE | 2025-07-07 09:09 | Neurology Consultation ---
Date of Consultation July 07, 2025 Assessment & Plan (1) Acute stroke due to occlusion of right posterior cerebral artery: (2) Visual field defect: (3) Embolic stroke: Plan 69-year-old female with 2 recent embolic strokes, one within the left cerebral hemisphere presenting with transient aphasia, the more significant stroke involves the medial aspect of the right occipital lobe and has resulted in a persistent dense left homonymous hemianopsia. She is otherwise neurologically intact. Her stroke pattern is suggestive of cardioembolism. She does have a history of supraventricular tachycardia, although no known history of atrial fibrillation. Continue with dual antiplatelet therapy, aspirin 81 mg/day, Brilinta 90 mg twice daily for 3 weeks, afterwards, would switch to antiplatelet monotherapy, with either aspirin or Brilinta. Clopidogrel could be substituted for Brilinta if necessary. Would recommend 30-day mobile cardiac outpatient telemetry. Because she is from [place], she will need to arrange this testing with her transformer coil winder back home. If atrial fibrillation is identified, would recommend an anticoagulant such as Eliquis. I agree with atorvastatin 40 mg/day as ordered. Goal LDL going forward 70 or less. Inpatient management of hypertension per stroke protocol. Her antihypertensives may be restarted at the time of discharge. Unfortunately, due to this patient's dense left homonymous hemianopsia, she will not be able to operate a motor vehicle. She will need to follow-up with an centerless grinder back home to formally assess her visual bain. Please call with any questions. History of Present Illness Reason for Consultation: stroke Requesting Physician: Jairon Attending Physician: Mauro De La O MD History of Present Illness The patient is a 69-year-old right handed female, visiting [place] from out of town with her spouse for a reunion, had an episode of transient word finding difficulty/aphasia on July 05, lasted about 15 minutes, not aware of any associated weakness. Upon awakening the following morning, she became acutely aware of severe vision loss off to her left, this particular symptom has persisted. She has a history of tachyarrhythmia and hypertension. She had also been traveling abroad earlier this year and reports having COVID infection a few months ago. Past medical history also notable for an injury to the left knee requiring reconstructive surgery. She is prescribed pregabalin to address chronic pain related to this issue. I did independently review her neuroimaging evaluation. A CT of the head was negative for acute process. CTA of the head and neck revealed high-grade stenosis within the right posterior cerebral artery. Brain MRI reveals 2 acute infarcts, 1 within the right medial occipital lobe, the other within the left parietal cortex. There is also chronic cerebrovascular disease. A lower extremity ultrasound was negative for DVT. An electrocardiogram revealed sinus bradycardia, 57 bpm. She did have an echocardiogram completed this morning, results not available at this time. Lipid panel this morning reviewed. Triglycerides 124, cholesterol 184, LDL 86, HDL 73. Hemoglobin A1c 5.5. Allergies Allergy/AdvReac Type Severity Reaction Status Date / Time LUDY Inhibitors Allergy listed as Unverified 07/06/25 09:38 allergy with pharmacy Iodinated Contrast Media Allergy listed as Unverified 07/06/25 09:38 allergy with pharmacy metronidazole Allergy listed as Unverified 07/06/25 09:38 allergy with pharmacy opium poppy Allergy See Unverified 07/06/25 09:38 comment box Thiazides Allergy listed as Unverified 07/06/25 09:38 allergy with pharmacy Home Medications Medication Instructions Recorded Confirmed Type amlodipine 10 mg tablet 5 - 10 mg PO UD 07/06/25 07/06/25 History diltiazem HCl 120 mg 120 mg PO DAILY 07/06/25 07/06/25 History capsule,extended release 24 hr furosemide 20 mg tablet 20 mg PO DAILY 07/06/25 07/06/25 History metoprolol succinate 25 mg 0 mg PO DAILY 07/06/25 07/06/25 History tablet,extended release 24 hr pregabalin 75 mg capsule 75 mg PO BID 07/06/25 07/06/25 History telmisartan 40 mg tablet 20 - 40 mg PO UD 07/06/25 07/06/25 History zolpidem 5 mg tablet 5 mg PO HS PRN Sleep 07/06/25 07/06/25 History Patient History Medical History (Updated 07/07/25 @ 08:59 by Walter Garcia MD) Essential hypertension SVT (supraventricular tachycardia) Left renal artery stenosis Fibromuscular dysplasia of right renal artery Tibial plateau fracture, left s/p ORIF - 01/2023; removal of plate - 01/2024 Aftercare involving removal of fracture plate or internal fixation device left wrist plate removal - 02/2021 Sampson's fracture of right radius s/p repair - 2019 Surgical History (Updated 07/07/25 @ 03:41 by Mauro De La O MD) History of total left knee replacement (TKR) 05/2024 H/O wrist surgery left distal radius/ulna fractures s/p ORIF - 2019 H/O ventral hernia repair laparoscopic - 05/2020 History of facial surgery TMJ arthroscopy - left - 1987 History of tonsillectomy and adenoidectomy Family History (Updated 07/07/25 @ 03:43 by Mauro De La O MD) Father , age 90 COPD (chronic obstructive pulmonary disease) Dementia Mother , age 90 Sepsis Denies family history of Stroke Social History (Updated 07/07/25 @ 03:44 by Mauro De La O MD) Smoking Status: Never smoker Do You Dip or Chew Tobacco: No; Hx Alcohol Use: No Hx Substance Use: No Preferred Language: Divehi Communication Ability: Effective Senior Sas Programmer Required: No Beliefs That Will Affect Care: None marital status: Current Living Situation: Spouse Current Living Situation Comment: live in [place], [place] current occupational status: retired How many Children do You have: 3 How many Children do You have Comment: 1 daughter is ER physician in [facility]; another child is physician orthopedic assistant in [facility] Other Information That Helps Us Care for You: No Feels Safe at Home: Yes Safety Concerns: Feels Safe At This Time Assistive Devices: None Review of Systems Constitutional: no fever Eyes: as per Subjective / HPI and + blind spots; no diplopia and no eye pain Ear, Nose, Mouth, Throat: no hearing loss Respiratory: no dyspnea Cardiovascular: + palpitations Gastrointestinal: no nausea and no vomiting Genitourinary: no dysuria Musculoskeletal: no myalgia Integumentary: no rash Neurologic: as per Subjective / HPI; no gait abnormality, no localized weakness, no tremor(s), no headache(s), no abnormal speech and no memory loss Psychiatric: no depression and no anxiety Hematologic / Lymphatic: no easy bleeding and no easy bruising Exam (Neuro) Constitutional: well developed; no acute distress Eyes: PERRL and EOM intact bilaterally; + abnormal visual field confrontation (Patient has a dense left homonymous hemianopsia) and no nystagmus Neurologic: Oriented to:: Person, Place and Time Memory: Short Term Intact and Remote Intact Attention: Span Intact and Concentration Intact Speech Fluency: negative Dysarthria or Dysfluency Speech Aphasia: negative Aphasia Fund of Knowledge: Current Events, Past History and Vocabulary Cranial Nerves: Normal III, IV, , V, VII, VIII, IX, X, XI and XII; Abnorm II Motor Strength: Normal Lower Extremities and Normal Upper Extremities Motor Tone: Normal Lower Extremities and Normal Upper Extremities Muscle Bulk/Involuntary Movements: No Involuntary Movements; negative Muscle Atrophy Sensation: Light Touch Intact, Pain/Temperature Intact and Proprioception Intact Coordination: negative Dysdiadochokinesia, Finger-Nose Abnormal or Heel-Espinal Abnormal Deep Tendon Reflexes: Rt Triceps: 2+, Lt Triceps: 2+, Rt Biceps: 2+, Lt Biceps: 2+, Rt Brachioradialis: 2+, Lt Brachioradialis: 2+, Rt Patellar: 2+, Lt Patellar: 1+, Rt Ankle: 1+ and Lt Ankle: 1+ Special Tests: negative Babinski Present Results & Data Vital Signs (Past 12 Hours) Vital Signs Temp Pulse Pulse Resp BP Pulse Ox O2 Del Method 07/07/25 08:42 37.1 C 56 L 18 140/72 97 Room Air 07/07/25 04:42 36.6 C 51 L 17 151/73 H 96 Room Air 07/07/25 00:39 36.6 C 52 L 17 161/75 H 97 Room Air 07/06/25 21:50 55 L Coding Level of Care Code 35014 INT INP/OBS CARE 3/75MIN Diagnoses Acute stroke due to occlusion of right posterior cerebral artery I63.531 Visual field defect H53.40 Embolic stroke I63.9 Time Spent (min) 80
[2025-07-07] MEDS: ATORVASTATIN 40 MG TAB PO SCH (09:24)
[2025-07-07] MEDS: ASPIRIN 81 MG ECTAB PO SCH (09:24)
--- NOTE | 2025-07-07 09:30 | XCELERA ---
[id number]
[2025-07-07] MEDS: TICAGRELOR 90 MG TAB PO SCH (10:10)
[2025-07-07] MEDS: ACETAMINOPHEN 325 MG TAB PO PRN (15:58)
--- NOTE | 2025-07-07 16:01 | Hospitalist Progress Note ---
Date of Service July 07, 2025 Assessment & Plan (1) Acute stroke due to occlusion of right posterior cerebral artery: (2) Essential hypertension: (3) SVT (supraventricular tachycardia): (4) COVID-19: (5) Visual field defect: (6) Dyspnea: Plan 69yo female with history of HTN, SVT, left-sided renal artery stenosis, right- sided renal artery fibromuscular dysplasia, and recent COVID-19 infection presented to the hospital with complaints of visual disturbance and question of very mild left facial droop. She & her traveled from [facility] to the [facility] to attend a family reunion about 24 hours prior to admission. En route from [place] she had about a 30-minute episode of dysarthric speech. This self-resolved. She did not have any other neurological symptoms with the dysarthria. Upon awakening the morning of admission she immediately noted that she couldn't see normally. In particular, she noted that the left side of her visual field was "off." Her had also noted a very slight left lower facial droop. Patient is right-handed. #acute embolic stroke with right PONY ROUGHER territory stroke and left parietal lobe stroke - -2 separate strokes in 2 different areas (b/l, anterior circulation & posterior circulation) -highly suggestive of embolic etiology -did patient have rapid a.fib 48 hours prior to admission? -thus far tele without a.fib or a.flutter -CTA head with high-grade stenosis of the right PONY ROUGHER c/w right PONY ROUGHER territory CVA -echo w/ bubble study - preserved EF, no PFO, no thrombus seen -dopplers negative for DVT -started on aspirin/Brilinta in the ER per recs from [facility] -started on lipitor 40mg daily -PT/OT/speech evals appreciated; rehab not needed -appreciate Dr Garcia's consult from [facility] Neurology -after 21 days of DAPT can switch to clopidogrel alone (switching tomorrow morning from Brilina to Plavix) -her recent COVID-19 infection also increased her risk of stroke due to his pro- inflammatory effects on the vascular system -will need f/u with neurology upon return to [place] -will need f/u with ophtho or neuro-ophtho upon return to [place] -no driving due to large visual field deficits on left -will need, at minimum, a 30-day event monitor to r/o PAF; could also consider a loop recorder -she follows with EP in [place] #30-minute episode of dysarthria on 07/05 - MRI brain with small left-sided parietal lobe stroke - -no further speech impairment since 07/05 -the small L parietal lobe CVA was the likely cause of her dysarthric event on 07/05 #HTN - -permissive HTN was allowed on 07/06 -today, 07/07, her BPs have gradually come down on their own without intervention -thus, diltiazem, furosemide, metoprolol, and telmisartan all remain on hold -start BP treatment on 07/08 with gradual reduction as necessary #h/o SVT - -required hospitalization for such in [place] several years ago -ablation had been discussed in the past but not pursued -has worn outpatient monitors and she was never told a.fib or a.flutter was seen -see discussion above re: possible a.fib on 07/04 -telemetry while here thus far negative #recent COVID-19 infection - resolved - -mild leukopenia at admission likely due to such; now resolved -had URI symptoms only -tested positive on home test ~06/23 -symptoms started about 06/21 while traveling in [place] -we are 14+ days out from the start of symptoms; thus, no isolation required at this time -no evidence of lower respiratory tract infection from the recent COVID -certainly COVID can increase the risk of stroke based on the experiences/observations of the COVID pandemic -CTA chest today without pneumonia/infiltrates #FEN - -stop IV fluids -BMP today stable -repeat BMP am #DVT proph - -start lovenox 40mg daily for prophylaxis #dyspnea - -CTA chest obtained - no PE, no pneumonia, no pulm edema -2nd to Brilinta? -2nd to anxiety? -other etiology? -Brilinta is being stopped in kaushik of Plavix -recheck pulmonary status tomorrow pt's daughter updated at bedside today keep overnight for observation; hopeful for d/c tomorrow Admission and Anticipated Discharge Date Admission Date: July 06, 2025 Subjective tele overnight - NSR or SB, no a.fib or a.flutter patient reports no new neurological symptoms she thinks the left superior quadrant of her visual field may be slightly improved no dysphagia no dysarthria no motor weakness mentions she is having shortness of breath off/on at times, mainly at rest no dyspnea on exertion today with walking in the hallway pt's daughter, an ER physician from [facility], was at bedside today Review of Systems Review of Systems: cv - no chest pain pulm - dyspnea intermittently but no cough GI - no N/V neuro - mild headache - right parietal region Physical Exam Physical Exam: gen - NAD, looks good today, pleasant eyes - PERRL, EOMI, no nystagmus; left-sided homonymous hemianopsia with direct confrontation/visual field testing -- maybe slight improvement in left superior quadrant HENT - MMM neck - no JVD heart - irregular (PACs), rate <60, s1 s2, no murmur lungs - CTA b/l, no rales abd - soft NT ND BS+ ext - no edema, pulses b/l feet 2+ neuro - strength 5/5 x 4 exts; no pronator drift psych - awake, alert, oriented x 3 Results & Data Results & Data Vital Signs (Past 12 Hours) Vital Signs Temp Pulse Pulse Resp BP Pulse Ox O2 Del Method 07/07/25 11:55 36.7 C 64 18 142/84 H 96 Room Air 07/07/25 08:42 37.1 C 56 L 18 140/72 97 Room Air 07/07/25 07:30 52 L 07/07/25 04:42 36.6 C 51 L 17 151/73 H 96 Room Air Laboratory Results Laboratory Results - last 24 hr 07/07/25 06:17 WBC 5.00 RBC 3.87 L Hgb 11.6 L Hct 35.4 L MCV 91.5 MCH 30.0 MCHC 32.8 RDW Std Deviation 46.7 H RDW Coeff of Farhad 13.8 Plt Count 214 MPV 10.0 Immature Gran % (Auto) 0.2 Neut % (Auto) 58.0 Lymph % (Auto) 34.0 Whitman % (Auto) 5.8 Eos % (Auto) 1.6 Baso % (Auto) 0.4 Neut # (Auto) 2.90 Lymph # (Auto) 1.70 Whitman # (Auto) 0.29 Eos # (Auto) 0.08 Baso # (Auto) 0.02 Immature Gran # (Auto) 0.01 Sodium 138 Potassium 4.3 Chloride 104 Carbon Dioxide 28 Anion Gap 6 BUN 9 Creatinine 0.63 Est Cr Clr Drug Dosing 89.9 eGFR 95.37 BUN/Creatinine Ratio 14.3 Glucose 126 H Estimat Average Glucose 111 Hemoglobin A1c 5.5 Calcium 9.3 Triglycerides 124 Cholesterol 184 LDL Cholesterol, Calc 86 VLDL Cholesterol, Calc 25 HDL Cholesterol 73 Cholesterol/HDL Ratio 2.5 Diagnostic Findings Venous Doppler Study 07/06/25 12:21 Exam(s): US VENOUS BILATERAL LOWER EXTREMITIES EXAM: US Duplex Bilateral Lower Extremities Veins CLINICAL HISTORY: Reason for exam: recent prolonged travel recent COVID; ?DVT. TECHNIQUE: Real-time duplex ultrasound scan of the bilateral lower extremity veins integrating B-mode two-dimensional vascular structure, Doppler spectral analysis, color flow Doppler imaging and compression. COMPARISON: No relevant prior studies available. FINDINGS: Right deep veins: No DVT in the right common femoral, femoral, proximal deep femoral or popliteal veins. The veins demonstrate normal color flow, are normally compressible, with normal phasic flow and/or augmentation response. Right superficial veins: No thrombus in the visualized right great saphenous vein. Left deep veins: No DVT in the left common femoral, femoral, proximal deep femoral or popliteal veins. The veins demonstrate normal color flow, are normally compressible, with normal phasic flow and/or augmentation response. Left superficial veins: No thrombus in the visualized left great saphenous vein. Soft tissues: No acute findings. No popliteal cyst. IMPRESSION: No ultrasound evidence of deep venous thrombosis in the lower extremities. . Electronically signed by: Karl Marshall MD 07/06/25 23:33 PM Chest CTA 07/07/25 15:13 EXAM: CT angiogram of the chest EXAM REASON: Dyspnea, recent COVID infection, recent travel COMPARISON: No prior examinations available for comparison TECHNIQUE: Multiple transaxial images of the chest were obtained after the intravenous administration of contrast. The images were acquired in the arterial phase of contrast distribution and also reconstructed in coronal and sagittal planes. FINDINGS: There is no evidence of acute pulmonary embolus to the level the proximal segmental branches of the pulmonary arteries. No pulmonary parenchymal abnormalities are seen. There is no pneumothorax. There are no pleural or pericardial effusions. The heart and great vessels are within normal limits. No endobronchial lesions are noted. No acute bony abnormalities are noted. The visualized portions of the upper abdomen are unremarkable. IMPRESSION: No evidence of acute pulmonary embolus to the level of the proximal segmental branch of the pulmonary arteries. Electronically signed by Izaiah Lehman 07-07-2025 6:28 PM PG Care Time/CCT Total # of Minutes Spent Total Time Spent with Patient: Total time spent is greater than 50% in coordination of care (as documented) at patient's floor/unit and/or counseling patient: Coding Level of Care Code 71787 SUB INP/OBS CARE 3/50MIN Diagnoses Acute stroke due to occlusion of right posterior cerebral artery I63.531 Essential hypertension I10 SVT (supraventricular tachycardia) I47.10 COVID-19 U07.1 Visual field defect H53.40 Dyspnea R06.00
--- NOTE | 2025-07-07 18:28 | CT Scan Report ---
EXAM: CT angiogram of the chest EXAM REASON: Dyspnea, recent COVID infection, recent travel COMPARISON: No prior examinations available for comparison TECHNIQUE: Multiple transaxial images of the chest were obtained after the intravenous administration of contrast. The images were acquired in the arterial phase of contrast distribution and also reconstructed in coronal and sagittal planes. FINDINGS: There is no evidence of acute pulmonary embolus to the level the proximal segmental branches of the pulmonary arteries. No pulmonary parenchymal abnormalities are seen. There is no pneumothorax. There are no pleural or pericardial effusions. The heart and great vessels are within normal limits. No endobronchial lesions are noted. No acute bony abnormalities are noted. The visualized portions of the upper abdomen are unremarkable. IMPRESSION: No evidence of acute pulmonary embolus to the level of the proximal segmental branch of the pulmonary arteries. Electronically signed by Izaiah Lehman 07-07-2025 6:28 PM
[2025-07-08 04:02] VITALS: RESP 17; O2SAT 98
[2025-07-08 07:21] LABS: Anion Gap 6.0 (3-11); Blood Urea Nitrogen 8.0 mg/dl (6-23); Calcium 9.5 mg/dl (8.6-10.3); Carbon Dioxide 28.0 mmol/L (21-32); Chloride 105.0 mmol/L (98-107); Creatinine Clr Calc Pharmacy 89.9 ml/min; Glucose 123.0 mg/dl (70-99(Fasting)); Potassium 4.6 mmol/L (3.5-5.1); Sodium 139.0 mmol/L (136-145)
[2025-07-08 07:37] LABS: Thyroid Stimulating Hormone 3.169 uIu/ml (0.300-4.500)
[2025-07-08] MEDS: CLOPIDOGREL BISULFATE 75 MG TAB PO SCH (08:07)
[2025-07-08 08:34] VITALS: PULSE 58; TEMP 98.1
[2025-07-08] MEDS ORDERED: STROKE PATIENT DISCHARGE STA (11:28)
--- NOTE | 2025-07-08 11:49 | Neurology Progress Note ---
Date of Service July 08, 2025 Assessment & Plan (1) Embolic stroke: (2) Visual field defect: (3) Acute stroke due to occlusion of right posterior cerebral artery: Plan 69-year-old female with 2 recent embolic strokes. Please see my consultation report for further details. She is neurologically stable this morning. Does report some visual imagery to the left visual field which is likely due to "visual release phenomena" in the context of damage to the medial right occi pital lobe. As described previously, she would not be able to operate a motor vehicle and will need to follow-up with her keg header for continued monitoring of her visual bain. See yesterday's consultation report for full recommendations. Please call with any questions. Admission and Anticipated Discharge Date Admission Date: July 06, 2025 Subjective Follow-up, stroke Patient evaluated with family at bedside. She continues to report vision loss off to the left but has been experiencing some occasional visual perceptions to the left field, imagery, "like watching a movie." No headache, no further episodes of speech or word finding difficulty. No difficulty with motor control or sensory function of the limbs. She is pleasant, cooperative, interacts appropriately. Exhibits normal speech fluency, moves all 4 limbs equally. I reviewed the results of her testing with family, spouse and daughter present. Describe the natural history of stroke, underlying etiology suspected in her case, cardioembolic, expectation for healing but with residual vision loss off to the left. 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 Reviewed her current medication regimen which now includes aspirin, clopidogrel, and atorvastatin. She had some concern about possible hemorrhagic conversion of her recent right occipital stroke. Her stroke is not that large and I think the risk of significant hemorrhagic transformation is low. Nonetheless, minor petechial hemorrhages possible. There is no need for additional imaging at this time, however. She is planning on traveling back to [place] with her spouse, 8-hour car trip. She does have a portable blood pressure monitor, she normally takes amlodipine, telmisartan, and metoprolol as needed for tachycardia. She has not been receiving antihypertensives in the context of her recent stroke, her blood pressure looks normal. She can probably restart her Cardizem, could hold on the telmisartan for the time being. Dr. De La O will give additional guidance regarding her blood pressure prescriptions at time of discharge. Results & Data Vital Signs (Past 12 Hours) Vital Signs Temp Pulse Resp BP Pulse Ox O2 Del Method 07/08/25 08:00 36.7 C 58 L 118/68 98 Room Air 07/08/25 04:01 36.5 C 49 L 17 133/70 98 Room Air 07/08/25 00:08 36.5 C 46 L 16 132/73 95 Room Air Coding Level of Care Code 87792 SUB INP/OBS CARE 12/02MIN Diagnoses Embolic stroke I63.9 Visual field defect H53.40 Acute stroke due to occlusion of right posterior cerebral artery I63.531 Time Spent (min) 25 Comment Total time includes patient contact, chart review, counseling, note preparation
--- NOTE | 2025-07-08 11:49 | Discharge Summary ---
Discharge Summary Date of Service July 08, 2025 Principal Dx & Hospital Course #1 = Principal Diagnosis (1) Acute stroke due to occlusion of right posterior cerebral artery: (2) Essential hypertension: (3) SVT (supraventricular tachycardia): (4) COVID-19: (5) Visual field defect: (6) Dyspnea: Plan 69yo female with history of HTN, SVT, left-sided renal artery stenosis, right- sided renal artery fibromuscular dysplasia, and recent COVID-19 infection presented to the hospital with complaints of visual disturbance and question of very mild left facial droop. She & her traveled from [facility] to the [facility] to attend a family reunion about 24 hours prior to admission. En route from [place] she had about a 30-minute episode of dysarthric speech. This self-resolved. She did not have any other neurological symptoms with the dysarthria. Upon awakening the morning of admission she immediately noted that she couldn't see normally. In particular, she noted that the left side of her visual field was "off." Her had also noted a very slight left lower facial droop. Patient is right-handed. #acute embolic stroke with right TWISTER TENDER PAPER territory stroke and left parietal lobe stroke - -2 separate strokes in 2 different areas (b/l, anterior circulation & posterior circulation) -highly suggestive of embolic etiology -did patient have rapid a.fib 48 hours prior to admission? -thus far tele without a.fib or a.flutter -CTA head with high-grade stenosis of the right TWISTER TENDER PAPER c/w right TWISTER TENDER PAPER territory CVA -echo w/ bubble study - preserved EF, no PFO, no thrombus seen -dopplers negative for DVT -started on aspirin/Brilinta in the ER per recs from [place] [facility] -started on lipitor 40mg daily -PT/OT/speech evals appreciated; rehab not needed -appreciate Dr Garcia's consult [place] [facility] -after 21 days of DAPT can switch to clopidogrel alone (switching tomorrow morning from Brilina to Plavix) -her recent COVID-19 infection also increased her risk of stroke due to his pro- inflammatory effects on the vascular system -will need f/u with neurology upon return to [place] -will need f/u with ophtho or neuro-ophtho upon return to [place] -no driving due to large visual field deficits on left -will need, at minimum, a 30-day event monitor to r/o PAF; could also consider a loop recorder -she follows with EP in [place] #30-minute episode of dysarthria on 07/05 - MRI brain with small left-sided parietal lobe stroke - -no further speech impairment since 07/05 -the small L parietal lobe CVA was the likely cause of her dysarthric event on 07/05 #HTN - -permissive HTN was allowed on 07/06 -today, 07/07, her BPs have gradually come down on their own without intervention -thus, diltiazem, furosemide, metoprolol, and telmisartan all remain on hold -start BP treatment on 07/08 with gradual reduction as necessary #h/o SVT - -required hospitalization for such in [place] several years ago -ablation had been discussed in the past but not pursued -has worn outpatient monitors and she was never told a.fib or a.flutter was seen -see discussion above re: possible a.fib on 07/04 -telemetry while here thus far negative #recent COVID-19 infection - resolved - -mild leukopenia at admission likely due to such; now resolved -had URI symptoms only -tested positive on home test ~06/23 -symptoms started about 06/21 while traveling in [place] -we are 14+ days out from the start of symptoms; thus, no isolation required at this time -no evidence of lower respiratory tract infection from the recent COVID -certainly COVID can increase the risk of stroke based on the experiences/observations of the COVID pandemic -CTA chest today without pneumonia/infiltrates #FEN - -stop IV fluids -BMP today stable -repeat BMP am #DVT proph - -start lovenox 40mg daily for prophylaxis #dyspnea - -CTA chest obtained - no PE, no pneumonia, no pulm edema -2nd to Brilinta? -2nd to anxiety? -other etiology? -Brilinta is being stopped in [place] of Plavix -recheck pulmonary status tomorrow pt's daughter updated at bedside today keep overnight for observation; hopeful for d/c tomorrow Admission HPI Per Admitting Provider Very pleasant 69yo female with history of HTN, SVT, left-sided renal artery stenosis, right-sided renal artery fibromuscular dysplasia, and recent COVID-19 infection presented to the hospital today with complaints of visual disturbance and very mild left facial droop. She & her traveled yesterday from [facility] to the [place] area to attend a family reunion. En route from [place] she had about a 30-minute episode of dysarthric speech. This self-resolved. She did not have any other neurological symptoms with the dysarthria. They arrived in [place] last pm and stayed in a hotel. Upon awakening this morning at 7am she immediately noted that she couldn't see normally. In particular, she noted that the left side of her visual field was "off." Her had also noted a very slight left lower facial droop. The symptoms persisted and thus she came to [facility] ER for evaluation. In addition, on Wednesday while still in [place], she had about a 6 hour episode of tachycardia with rates of 140s to 160s. She assumed it was her SVT and took metoprolol for such. Her rates improved later in the day to <100 but she noticed for at least another 2-3 hours her rhythm was irregular. Ultimately the irregularity stopped completely on Wednesday night. To her knowledge she has never been told she has had a.fib or a.flutter. She follows with cardiology in [place], [place]. Finally, she & her traveled to [facility] about 2-3 weeks ago. About 06/20 or 06/21 she developed URI symptoms and felt poorly. They traveled back to [place] by way of airplane on 06/22. On 06/23 she took a home COVID test and this was positive. Her URI symptoms are fully resolved at this time. During my admission assessment, however, she was wearing oxygen and reported that since arrival to [facility] she feels a little short of breath. She also had dyspnea during her palpitations episode on Wednesday. Discharge Exam gen - NAD, looks good today, pleasant eyes - PERRL, EOMI, no nystagmus; left-sided homonymous hemianopsia with direct confrontation/visual field testing -- maybe slight improvement in left superior quadrant HENT - MMM neck - no JVD heart - irregular (PACs), rate <60, s1 s2, no murmur lungs - CTA b/l, no rales abd - soft NT ND BS+ ext - no edema, pulses b/l feet 2+ neuro - strength 5/5 x 4 exts; no pronator drift psych - awake, alert, oriented x 3 Discharge Plan Discharge Items Patient Disposition: Home - Self-Care Reason For Visit: ACUTE STROKE Discharge Diagnosis: 1. bilateral strokes - right occipital lobe (visual center) and left parietal lobe (likely caused your brief speech difficulty event) 2. high blood pressure 3. chronic left knee pain 4. left-sided visual field deficit due to #1 5. recent COVID-19 infection - resolved 6. shortness of breath - resolved; CT scan of lungs normal (no blood clots, etc); due to recent Brilinta? 7. history of SVT 8. concern for recent episode of atrial fibrillation Activity: As commented below Activity Comment: plan to do light activities only for the next couple of weeks Sexual Activity: Wait until after follow-up appointment Exercise/Sports: Wait until after follow-up appointment Driving/Machine Use: NO DRIVING unless cleared by ophthalmology Non-emergency contact: Primary Care Provider and [place] Attacher Call non-emergency contact if: you have any medication questions and your symptoms worsen Follow-up/Referrals: Eddie Peters [Other] (see your family medicine provider upon return to [place] (within 1 week)) Gregory Bush MD [Other] (see Dr Bush within 1-2 weeks to discuss obtaining a 30-day monitor ) Diet: Heart Healthy Addtl Attending Provider Instructions: Mrs Aguirre, You were hospitalized after having had a stroke. Your main symptom was that of visual disturbance affecting the left visual field. MRI brain confirmed a stroke in the visual center of the brain called the occipital lobe. The stroke was in the right occipital lobe. In addition, you had had a brief episode of speech abnormality during your travels from [place]. We found a smaller stroke in the left parietal lobe on the MRI which likely was the cause of your temporary speech difficulty. Since you had 2 strokes on both sides of the brain this is suspicious for a " cardioembolic" cause of your stroke events. In other words, a blood clot may have traveled from the heart up to the brain causing the 2 strokes. We are suspicious that you may have had atrial fibrillation earlier last week which may have set you up for this. Unfortunately we did not capture any atrial fibrillation on heart monitoring during your stay. We did not find DVT blood clots in your legs. We did not find a small hole in the top portion of your heart called a "PFO" on your echocardiogram. A visible blood clot in the heart was not seen either. We did not find pulmonary emboli blood clots in your lungs on CT scan. Recommendations - 1. starting 07/09/25 take: -aspirin 81mg once daily -clopidogrel 75mg once daily -these medicines are to prevent another stroke -you will need to remain on both medicines for at least 3 weeks -at the 21-day connor one of the two medicines can be discontinued -we will defer to your providers in [place] which of the two can be stopped; since you were not taking any aspirin prior to the stroke they may advise stopping the clopidogrel and simply continuing on aspirin alone -both of these medicines affect your platelets -most common side effect of both medicines is bruising and bleeding -some people develop stomach upset when taking both medicines together -if you develop stomach upset please talk to your family medicine provider about an antacid 2. starting 07/09/25 take: -atorvastatin 40mg once daily -this is for cholesterol -most common side effect - muscle aches 3. upon return to [place] please - -see your family provider -see your freelance patternmaker -obtain an appointment to an handhole machine operator for a thorough eye exam and visual field testing 4. NO DRIVING a car or operating heavy machinery unless cleared by your eye doctor 5. if atrial fibrillation is discovered in the future your providers would then add blood thinning medicine (anticoagulant) such as Eliquis or Xarelto 6. talk to your freelance patternmaker about getting a 30-day heart monitor to wear at home to rule out the presence of atrial fibrillation 7. check your blood pressure twice daily. Keep a log of your blood pressures. If your systolic blood pressure ("top number") is consistently less than 140 you can continue to hold your blood pressure medicines as listed in these instructions. If your systolic blood pressure is consistently more than 140 then please start your Telmisartan 20mg once daily. Return to any hospital if - -you have fevers over 100 degrees -you have worsening visual disturbance or visual field cut -you have a severe headache -you develop difficulty speaking or swallowing -you have severe vertigo (spinning) or balance difficulty -you have weakness of any arm or leg -you develop numbness in a limb or limbs -you have rapid heart beating (heart rate over 100 consistently) or palpitations (this would be worrisome for SVT or atrial fibrillation) -any other concerns It was our pleasure to care for you! Safe travels, -Mauro De La O, [facility] Addtl Nail Polish Brush Machine Feeder Provider Instructions: Risk Factors for Stroke: You can reduce your chances of stroke by working with your medical provider to adopt a healthy lifestyle. Some specific ways to lower your chance of stroke are: * If you are a smoker, now is the time to stop smoking cigarettes * If you are diabetic, improve the control of your blood sugars * Avoid excessive amounts of alcohol * Control high blood pressure * Lose weight if you are overweight * Be sure to lead an active lifestyle * Eat a healthy diet low in salt, cholesterol and fat You should know about other risk factors for stroke that you are unable to control. These include: * Age 55 years or older * Male gender * Certain racial groups: , or / * Family History of Stroke, Mini stroke or Heart Attack * Sickle Cell Disease Who to Call and When: Medical Emergencies: Call 911 immediately if you experience any of the following warning signs and symptoms of Stroke: * Sudden numbness or weakness of the face, arm or leg, especially on one side of the body * Sudden confusion, trouble speaking or understanding * Sudden trouble seeing in one or both eyes * Sudden trouble walking, dizziness, loss of balance or coordination * Sudden severe headache with no cause Do not delay calling 911 if you experience any warning signs or symptoms of a stroke. Delay in seeking medical attention may affect what treatments can be given to you. . Pending Studies at Discharge: No Stand-Alone Forms: My [facility], Smoking Cessation, Medications to Prevent Stroke Medications and DC Order Prescriptions: New clopidogrel 75 mg Tablet 75 mg PO QAM Qty: 30 1RF aspirin 81 mg Tablet,Delayed Release (Dr/Ec) 81 mg PO QAM Qty: 30 0RF Rx Instructions: purchase [id number] atorvastatin [Lipitor] 40 mg tablet 40 mg PO DAILY Qty: 30 2RF Continued zolpidem 5 mg tablet 5 mg PO HS PRN (Reason: Sleep) pregabalin 75 mg capsule 75 mg PO BID Held amlodipine 10 mg tablet 5 - 10 mg PO UD Hold Instructions: hold for now Rx Instructions: 0.5 TAB PO FOR 3 DAYS THEN INCREASE TO 1 TAB DAILY IF BP GREATER THAN 139/89 telmisartan 40 mg tablet 20 - 40 mg PO UD Hold Instructions: hold for now Rx Instructions: 0.5 TAB DAILY FOR 1 WEEK THEN INCREASE TO 1 TAB DAILY IF BP GREATER THAN 13 diltiazem HCl 120 mg capsule,extended release 24hr 120 mg PO DAILY Hold Instructions: hold for now furosemide 20 mg tablet 20 mg PO DAILY Hold Instructions: hold at this time metoprolol succinate 25 mg tablet extended release 24 hr 0 mg PO DAILY Hold Instructions: hold for now Patient Comments: 07/06- Per pharmacy, medication was closed by provider February 26 2025 Discharge Orders: Discharge Order (Routine); Ordered 07/08/25 Ordered By: Mauro Veronica/Other Patient Handouts: Atorvastatin Oral Tablet, Clopidogrel Oral Tablet, Discharge Instructions for Stroke Admission Data Admit Date/Time: 07/06/25 12:27 Attending Provider: Mauro De La O Admit Provider: Mauro De La O Primary Care Provider: PCP,NO Other Providers: Mauro De La O; Walter Garcia Hospital Stay Data Consultations 07/06/25 10:23 ED Decision to Admit Stat 07/06/25 17:17 Consult Neurology Routine 07/08/25 11:24 Burn CD for patient Stat Diagnostic Imagining Performed 07/06/25 08:33 CT head/brain wo con Stat 07/06/25 08:35 CT angio head w con Stat CT angio neck with con Stat 07/06/25 10:56 MR brain wo con Stat 07/06/25 12:21 US venous doppler LE BI Urgent 07/07/25 15:13 CT angio chest PE protocol Urgent Pending Results Patient Have Any Pending Studies at Discharge: No Discharge Instructions Given to Patient (Per Discharging Provider) Mrs Aguirre, You were hospitalized after having had a stroke. Your main symptom was that of visual disturbance affecting the left visual field. MRI brain confirmed a stroke in the visual center of the brain called the occipital lobe. The stroke was in the right occipital lobe. In addition, you had had a brief episode of speech abnormality during your travels from [place]. We found a smaller stroke in the left parietal lobe on the MRI which likely was the cause of your temporary speech difficulty. Since you had 2 strokes on both sides of the brain this is suspicious for a "cardioembolic" cause of your stroke events. In other words, a blood clot may have traveled from the heart up to the brain causing the 2 strokes. We are suspicious that you may have had atrial fibrillation earlier last week which may have set you up for this. Unfortunately we did not capture any atrial fibrillation on heart monitoring during your stay. We did not find DVT blood clots in your legs. We did not find a small hole in the top portion of your heart called a "PFO" on your echocardiogram. A visible blood clot in the heart was not seen either. We did not find pulmonary emboli blood clots in your lungs on CT scan. Recommendations - 1. starting 07/09/25 take: -aspirin 81mg once daily -clopidogrel 75mg once daily -these medicines are to prevent another stroke -you will need to remain on both medicines for at least 3 weeks -at the 21-day connor one of the two medicines can be discontinued -we will defer to your providers in [place] which of the two can be stopped; since you were not taking any aspirin prior to the stroke they may advise stopping the clopidogrel and simply continuing on aspirin alone -both of these medicines affect your platelets -most common side effect of both medicines is bruising and bleeding -some people develop stomach upset when taking both medicines together -if you develop stomach upset please talk to your family medicine provider about an antacid 2. starting 07/09/25 take: -atorvastatin 40mg once daily -this is for cholesterol -most common side effect - muscle aches 3. upon return to [place] please - -see your family provider -see your freelance patternmaker -obtain an appointment to an handhole machine operator for a thorough eye exam and visual field testing 4. NO DRIVING a car or operating heavy machinery unless cleared by your eye doctor 5. if atrial fibrillation is discovered in the future your providers would then add blood thinning medicine (anticoagulant) such as Eliquis or Xarelto 6. talk to your freelance patternmaker about getting a 30-day heart monitor to wear at home to rule out the presence of atrial fibrillation 7. check your blood pressure twice daily. Keep a log of your blood pressures. If your systolic blood pressure ("top number") is consistently less than 140 you can continue to hold your blood pressure medicines as listed in these instructions. If your systolic blood pressure is consistently more than 140 then please start your Telmisartan 20mg once daily. Return to any hospital if - -you have fevers over 100 degrees -you have worsening visual disturbance or visual field cut -you have a severe headache -you develop difficulty speaking or swallowing -you have severe vertigo (spinning) or balance difficulty -you have weakness of any arm or leg -you develop numbness in a limb or limbs -you have rapid heart beating (heart rate over 100 consistently) or palpitations (this would be worrisome for SVT or atrial fibrillation) -any other concerns It was our pleasure to care for you! Safe travels, -Mauro De La O, hospital medicine Coding Diagnoses Acute stroke due to occlusion of right posterior cerebral artery I63.531 Essential hypertension I10 SVT (supraventricular tachycardia) I47.10 COVID-19 U07.1 Visual field defect H53.40 Dyspnea R06.00
[2025-07-08 11:54] VITALS: BP 167/86
--- NOTE | 2025-07-10 13:32 | Pharmacy Report ---
Pharmacist Stroke Counseling - Date of Service July 10, 2025 - Scope: Pharmacy has been consulted to provide medication discharge counseling for this patient admitted with ischemic stroke as per the Pharmacist Discharge Counseling for Stroke Patients Protocol. - Medications on Discharge: Home Medications Medication Instructions Recorded Confirmed amlodipine 10 mg tablet 5 - 10 mg PO UD 07/06/25 07/06/25 diltiazem HCl 120 mg 120 mg PO DAILY 07/06/25 07/06/25 capsule,extended release 24 hr furosemide 20 mg tablet 20 mg PO DAILY 07/06/25 07/06/25 metoprolol succinate 25 mg 0 mg PO DAILY 07/06/25 07/06/25 tablet,extended release 24 hr pregabalin 75 mg capsule 75 mg PO BID 07/06/25 07/06/25 telmisartan 40 mg tablet 20 - 40 mg PO UD 07/06/25 07/06/25 zolpidem 5 mg tablet 5 mg PO HS PRN Sleep 07/06/25 07/06/25 New Rx's Medication Instructions Recorded aspirin 81 mg tablet,delayed 81 mg PO QAM #30 tabs 07/08/25 release atorvastatin 40 mg tablet (Lipitor) 40 mg PO DAILY #30 tabs 07/08/25 clopidogrel 75 mg tablet 75 mg PO QAM #30 tabs 07/08/25 - Action: The above medications, specifically ones for stroke treatment/prophylaxis, have been reviewed in detail with the patient and/or patient strategic partnership representative(s) prior to discharge. This includes indication, common adverse reactions, drug interactions, and medication administration. Medication counseling has been employed using the teach-back method to ensure understanding. - Outcome: The patient and/or patient strategic partnership representative(s) have demonstrated understanding of the medications. Additional comments: * Patient confirmed that all new medications were picked up from pharmacy. * Blood pressure medications were placed on hold at discharge. Patient has been checking BP every day and has been well-controlled. * Patient knows to follow up with doctor back home in regards to which antiplatelet agent she will continue ongoing. * No barriers to medication compliance identified. Thank you for allowing pharmacy to be involved in the care of this patient. Please call [phone] with any additional questions
== END 2025-07-08 12:20 | disposition home or self-care (01) | DRG 65 ==
LOC: ED 08:26 → EDINP 12:27 → 2E 15:35